=== PATIENT | female | born 1955 | race African-American/Black ===

== ENCOUNTER 2024-03-22 10:10 | Outpatient (REF) | payer MEDICARE, OTHER, SELFPAY ==
--- NOTE | ~2024-03-22 | XR_ITS ---
EXAMINATION: XR CERVICAL SPINE 6 VIEWS CLINICAL INFORMATION: Cervical radiculopathy. Tingling going down the left arm. COMPARISON: None available TECHNIQUE: 6 views of the cervical spine, inclusive of flexion and extension views, were obtained. FINDINGS: There is reversal of the normal cervical lordosis. Alignment is otherwise unremarkable. Normal C1/2 articulation. Lumbar vertebral body heights are maintained. There is mild narrowing of the C5/6 disc space height with moderate narrowing of the C6/7 disc space height. Moderate-sized osteophytes are noted within the mid to lower cervical spine. There is mild narrowing of the left C5/6 neural foramina. Other bilateral neural foramina are widely patent diffusely. No prevertebral soft tissue swelling. Visualized lung apices are well aerated. XR/XR cervical spine 4V IMPRESSION: Mild to moderate degenerative changes of the mid to lower cervical spine. No compression deformity. Electronically signed by: Matthew Leung MD 05/18/2024 09:31 AM SAM
== END 2024-03-22 10:11 | disposition home or self-care (01) ==
LOC: HO.XRAY 10:10
PROVIDERS: PCP Internal Medicine; Visit Provider Psychiatry & Neurology Neurology
DX: M54.12 Radiculopathy, cervical region (principal)
CPT/HCPCS: 72050

== ENCOUNTER 2024-12-19 09:31 | Outpatient (AMB) | payer MEDICARE, OTHER, SELFPAY ==
--- OUTSIDE RECORDS SUMMARY | 2024-03-14 08:00 | XMS_ITS | Encounter Summary ---
Author Organization [facility] Address [address] [place] [address] Care Team Providers Care Invisible Braces Orthodontist Name Role Phone Jean Girard MD Primary Care Provider [phone] Encounter Details Date Type Department Care Team (Late Contact Info) Description 03/14/2024 8:00 AM EDT Hospital Encounter TH HISTORIC ENCOUNTERS EASTERN CONVERSION ONLY Jean Girard MD [address] [place] [address] Social History Tobacco Use Types Packs/Day Years Used Date Smoking Tobacco: Never Smokeless Tobacco: Never Alcohol Use Standard Drinks/Week Comments Not Currently 0 (1 standard drink = 0.6 oz pur e alcohol) Comments No Sex and Gender Information Value Date Recorded Sex Assigned at Female 05/29/2024 11:37 AM EST Legal Sex Female 10:17 AM EST Gender Identity Female 05/29/2024 11:37 AM EST Sexual Orientation Not on file documented as of this encounter Plan of Treatment Upcoming Encounters Date Type Department Care Team (Late st Contact Info) Description 12/25/2024 1:00 PM EDT Appointment [facility] [address] 2nd [place] [id number] 12/28/2024 1:20 PM EDT Appointment Radiology Department - [address] [place] [address] 01/16/2025 8:30 AM EDT Office Visit Pulmonolgy - [place] [address] [place] [address] Nyla Hernandez MD [address] [address] 08/30/2025 2:00 PM EDT Appointment Bone Density - [address] [place] [address] documented as of this encounter Visit Diagnoses Not on filedocumented in this encounter Care Teams Invisible Braces Orthodontist Relationship Specialty Start Date End Date Jean Girard MD [address] [place] [address] PCP - General Internal Medicine 04/13/16 documented as of this encounter
--- NOTE | 2024-12-19 10:00 | A.OFFVIS_ITS ---
Intake Visit Reasons: cr Allergies erythromycin base Allergy (Unknown, Verified 12/15/24 12:30) Unknown Medication List - Last Reconciled 12/19/24 by Trinity Hunter MD amlodipine 10 mg PO QAM fluticasone propion-salmeterol 250-50 mcg/dose (Wixela Inhub) 1 ea inhalation BID fluticasone propion-salmeterol 500-50 mcg/dose (Wixela Inhub) 1 ea inhalation BID ipratropium bromide 2 sprays intranasal BID losartan 25 mg PO DAILY lovastatin 40 mg PO BEDTIME meclizine mg PO ondansetron 4 mg PO Q8H HPI Comments Details: No other episodes of vertigo. She was getting BPV. Work up was negative. Hand Sx have improved. Using braces most nights. Left arm pain an dtingling resolved. Every couple of months she gets some tingling transiently in her right hand as well but not recently. Had a shooting left temporal pain 4 weeks ago for 2 secs. [facility] Medical History (Updated 12/19/24 @ 10:03 by Trinity Hunter MD) Depression Carpal tunnel syndrome, bilateral upper limbs Carpal tunnel syndrome Paresthesia Bronchial asthma Hyperlipidemia Hypertension Review of Systems Const Details: leep:? Difficulty getting to sleep?denies.? Difficulty maintaining sleep?denies? .? Urge to move legs?denies.? Teeth grinding?admits.? Shouting or Kicking during sleep?denies.? Abnormal behavior during sleep?denies.? Excessive sleep?denies.? Snoring?denies.? Daytime sleepiness?denies.? ?? General/Constitutional:? Change in appetite?denies.? Chills?denies.? Fatigue?denies.? Fever?denies .? Weight gain?denies.? Weight loss?denies.? ?? Ophthalmologic:? Blurred vision?denies.? Diminished visual acuity?denies.? ?? ENT:? Stuffiness?denies.? Decreased hearing?denies.? Dry mouth?denies.? Ear pain?denies.? Nosebleed?denies.? Ringing in the ears?denies.? Sinus pain?denies .? Sore throat?denies.? Swollen glands?denies.? ?? Endocrine:? Cold intolerance?denies.? Excessive thirst?denies.? Frequent urination? denies.? Heat intolerance?denies.? ?? Respiratory:? Shortness of breath?denies.? Chest pain?denies.? Cough?denies.? ?? Breast:? Breast lump?denies.? Nipple discharge?denies.? ?? Cardiovascular:? Chest pain at rest?denies.? Chest pain with exertion?denies.? Claudication?denies.? Dizziness?denies.? Fluid accumulation in the legs?denies.? Irregular heartbeat?denies.? Palpitations?denies.? ?? Gastrointestinal:? Abdominal pain?denies.? Constipation?denies.? Diarrhea?denies.? Difficulty swallowing?denies.? Heartburn?denies.? Nausea?denies.? Rectal bleeding?denies.? ?? Hematology:? Easy bruising?denies.? Prolonged bleeding?denies.? ?? Genitourinary:? Frequent urination?denies.? Urgency?denies.? Incontinence?denies.? Ere ctile Dysfunction?denies.? ?? Musculoskeletal:? Neck pain?denies.? Back pain?denies.? Muscle aches?denies.? Painful joints?denies.? Sciatica?denies.? Weakness?denies.? ?? Podiatric:? Difficulty walking?denies.? Foot numbness?denies.? ?? Neurologic:? Difficulty swallowing?denies.? Balance difficulty?denies.? Coordination? normal.? Difficulty speaking?denies.? Dizziness?denies.? Fainting?denies.? Gait abnormality?denies.? Headache?denies.? Loss of strength?denies.? Loss of use of extremity?denies.? Low back pain?denies.? Memory loss?denies.? Seizures?denies.? Tics?denies.? Tingling/Numbness?Hands and feet on the right.? Transient loss of vision?denies.? Tremor?denies.? ?? Psychiatric:? Anxiety?denies.? Auditory/visual hallucinations?denies.? Delusions?denies .? Depressed mood?denies.? Stressors?denies.? Substance abuse?denies.? Suicidal thoughts?denies.? ?? Physical Exam Neuro Other: Neurological: ? Abnormal neurological findings:??none.? Mental Status:?alert and oriented X 3,?Normal attention, orientation, memory and affect.? Cranial Nerves:?Pupils are equal, round and reactive to light. Fundoscopy shows normal disc bilaterally. External occular muscles are intact. Visual yung are full, no ptosis. Face is symmetrical, no facial weakness or droop. Facial sensations are normal. Tongue protrudes in midline. Palate elevates symmetrically. Shoulder shrugging is normal..? Motor Examination:?Normal muscle tone, bulk and strength,?No atrophy or fasciculations,?No drift of the extended upper extremities,?Deep tendon reflexes are 2+?,?Plantars are flexor?.? Straight Leg Raising:?90 degrees.? Sensory Exam:?Normal light touch, temperature, pinprick, vibration and joint-position sensations?,?Rhomberg sign is absent.? Coordination:?no ataxia,?no titubation,?sfpwir-pr-zazn, vzvv-llzz-bscy test and rapid alternating movements were normal.? Gait Exam:?Within normal limits.? Cerebellar Signs:?Yqaauw-oh-tqwa and zsjw-mz-jglt is normal,?no dysdiadochokinesia?.? Extrapyramidal System:?No tremor, rigidity with normal facial expressions,?No bradykinesia, no bradyphrenia. Normal arm swing and posture. No propulsion or retropulsion.? Speech:?Normal,?no dysphasia or dysarthria..? Mini Mental Status Exam: ? Level of Consciousness:?Alert.? Orientation:?Knows correct year, month, date, day and season,?Knows correct city, county and state. Knows correct location and floor.? Registration:?Able to register 3 objects.? Attention:?Serial 7's performed accurately.? Recall:?Able to recall 3 out of 3 objects.? Language:?Normal spontaneous speech, fluency, repetition,naming, comprehension, reading and writing.? Total Score:?30/30.? General Examination: ? GENERAL APPEARANCE:?normal,?in no acute distress.? HEAD:?normocephalic,?atraumatic.? EYES:?sclera non-icteric,?conjunctiva clear.? EARS:?auditory canal clear,?tympanic membrane intact, clear.? NOSE:?no lesions.? ORAL CAVITY:?gums normal,?mucosa moist,?no lesions.? THROAT:?clear.? NECK/THYROID:?no cervical lymphadenopathy,?thyroid normal,?neck supple, full range of motion,?no carotid bruit.? SKIN:?no rashes,?no significant birthmarks.? HEART:?S1, S2 normal,?no murmurs.? LUNGS:?clear anteriorly and posteriorly.? CHEST:?no gross rib deformity,?clear to auscultation.? BACK:?normal exam of spine.? EXTREMITIES:?no edema.? PERIPHERAL PULSES:?normal.? PSYCH:?alert, oriented,?cognitive function intact,?cooperative with exam.? Assessment & Plan Assessment & Plan (1) Vertigo: Code(s): R42 - Dizziness and giddiness Category: Medical (2) Carpal tunnel syndrome, bilateral upper limbs: Code(s): G56.03 - Carpal tunnel syndrome, bilateral upper limbs Category: Medical Plan continue current meds, Use wrist splints at night Coding Level of Care Code Est Pt Level 3 (34280) Diagnoses Vertigo R42 Carpal tunnel syndrome, bilateral upper limbs G56.03
--- OUTSIDE RECORDS SUMMARY | 2024-12-19 10:07 | XMS_ITS | Clinical Summary ---
Author Organization [facility] Address [address] [place] [address] Care Team Providers Care Tray Packer Name Role Phone Jean Girard MD Primary Care Provider [phone] Allergies Active Allergy Reactions Criticality Noted Date Comments Erythromycin Nausea Only 01/29/2022 Medications Medication Sig Dispensed Refills Start Date End Date Status amLODIPine (NORVASC) tablet 2.5 mg Take 2.5 mg by mouth daily. 0 01/18/2022 Active Advair HFA 230-21 MCG/ACT inhaler 0 01/29/2022 Active hydroCHLOROthiazide (HYDRODIURIL) tablet 25 mg Take 25 mg by mouth daily. 0 01/18/2022 Active ipratropium (ATROVENT) 0.06 % nasal spray 2 sprays 2 (two) times a day. 0 01/23/2022 Active lovastatin (MEVACOR) 40 MG tablet Take 40 mg by mouth every night at bedtime. 0 01/05/2022 Active meclizine (ANTIVERT) 25 MG tablet CHEW 1 TABLET BY MOUTH EVERY 6 HOURS NEEDED FOR DIZZINESS AND NAUSEA 0 01/12/2022 Active montelukast (SINGULAIR) 10 MG tablet Take 10 mg by mouth every night at bedtime. 0 01/09/2022 Active ondansetron (ZOFRAN) 4 MG tablet 0 01/28/2022 Active Spiriva Respimat 1.25 MCG/ACT AERS 0 01/29/2022 Active Active Problems Problem Noted Date Diagnosed Date Osteopenia 01/21/2022 Social History Tobacco Use Types Packs/Day Years Used Date Smoking Tobacco: Never Assessed Sex and Gender Information Value Date Recorded Sex Assigned at Female 01/19/2022 3:53 PM EDT Gender Identity Not on file Sexual Orientation Not on file Job Start Date Occupation Industry Not on file Not on file Not on file Last Filed Vital Signs Vital Sign Reading Time Taken Comments Blood Pressure 132/94 01/29/2022 2:00 PM EDT Pulse 90 01/29/2022 2:00 PM EDT Temperature 36.1 C (96.9 F) 01/29/2022 2:00 PM EDT Respiratory Rate 18 01/29/2022 2:00 PM EDT Oxygen Saturation 100% 01/29/2022 2:00 PM EDT Inhaled Oxygen Concentration - - Weight - - Height - - Body Mass Index - - Plan of Treatment Health Maintenance Due Date Last Done Comments Hepatitis C Screening 1955 COVID-19 Vaccine (#1) 1953 Depression Screening 1965 Preventative Health Evaluation 1971 DTap / Tdap / Td (1 - Tdap) 1972 Colon Cancer Screening (Colonoscopy) 1998 Breast Cancer Screening (Mammogram) 2003 Shingrix-Zoster Vaccine (1 of 2) 2003 Fall Risk Assessment 2018 Osteoporosis Screening (DEXA Scan) 2018 Pneumococcal Vaccine (1 of 1 - PCV) 2018 Influenza Vaccine (#1) 2025 RSV Adult > 60+ Yrs or Pregn ant (1 - 1-dose 75+ series) 2028 Hepatitis B Vaccines Aged Out No long er eligible based on patient's age to complete this topic RSV Ped < 20 months Aged Out No longe r eligible based on patient's age to complete this topic Care Teams Tray Packer Relationship Specialty Start Date End Date Jean Girard MD [address] [place] [address] PCP - General Internal Medicine 01/21/22
--- OUTSIDE RECORDS SUMMARY | 2024-12-19 10:07 | XMS_ITS | Data Portability ---
Author Organization [place] - [facility] [address] Address [address] [place] [address] Assessment No assessment recorded. Plan of Treatment Reminders Order Date Submit Date Provider Last Modified By Organization Details Last Modified Time Details Appointments None recorded. Lab SARS CoV 2 (COVID-19) Ag, QL, IA, upper respiratory specimen [email or web address] [facility] [facility] [address], [address] [place], [address], 4 11:40:37 Referral None recorded. Procedures None recorded. Surgeries None recorded. Imaging None recorded. Medication Orders Allergy Relief (fluticason e) 50 mcg/actuati on nasal spray,suspe nsion 2023 024 [id number], [address] [place], [address], 4 11:40:37 Patient TargetsNo targets recorded. Patient Instructions Encounter Date Encounter Id Patient Instructions Last Modified By Organization Details Last Modified Time 06/21/2023 [id number] If you test positive for COVID-19, stay home for at least 5 days and isolate from others in your home. You are likely most infectious during these first 5 days. Wear a high-quality mask if you must be around others at home and in public. Do not go places where you are unable to wear a mask. For travel guidance, see CDC s Travel webpage. Do not travel. Stay home and separate from others as much as possible. Use a separate bathroom, if possible. Take steps to improve ventilation at home, if possible. Don t share personal household items, like cups, towels, and utensils. Monitor your symptoms. If you have an emergency warning sign (like trouble breathing), seek emergency medical care immediately. If you had symptoms and: Your symptoms are improving You may end isolation after day 5 if: You are fever-free for 24 hours (without the use of fever-reducing medication). Your symptoms are not improving Continue to isolate until: You are fever-free for 24 hours (without the use of fever-reducing medication). Your symptoms are improving. Regardless of when you end isolation Until at least day 11: Avoid being around people who are more likely to get very sick from COVID-19. Remember to wear a high-quality mask when indoors around others at home and in public. Do not go places where you are unable to wear a mask until you are able to discontinue masking (see below). For travel guidance, see [facility] s Travel webpage. [email or web address] Not available 06/21/2023 11:40:34 Reason for Referral None Reported. Results Created Date Observation Date Name Description Value Unit Range Abnormal Flag Note LastModifiedBy Organization Detail LastModifiedTime 06/21/19 24 06/21/2023 SARS CoV 2 (COVI D-19) Ag, QL, IA, upper respi rator y speci men Unknown Analyte negati ve Not Available [facility] [address] [place], [address], 06/21/2023 11:22:44 06/21/1906/21/2023 SARS CoV 2 (COVI D-19) Ag, QL, IA, upper respi rator y speci men Unknown Analyte yes Not Available [address] [place], [address], 06/21/2023 11:22:44 Result Notes None recorded. Problems Name Problem SNOMED Code Status Onset Date Resolution Date Notes Provider Name and Address Organization Details Recorded Time Hypertensive disorder 95473988 Active [facility] 11:17:29 Hyperlipidemia 28392151 Active [facility] 4 11:17:35 Osteopenia 494986676 Active KUSH hess [place] - [facility] 4 11:17:58 Vertigo 341920547 Active KUSH hess, [place] - [facility] 4 11:18:12 Problem Notes None recorded. Procedures Surgical History Date Name Laterality Status Provider Name and Address Organization Details Recorded Time Removal of tonsils completed KUSH CASTILLO [place] - [facility] 06/21/2023 11:18:39 hysterectomy completed KUSH CASTILLO [place] - [facility] 06/21/2023 11:18:48 Imaging Results None recorded. Procedure Notes None recorded. Medical Equipment None Reported. Allergies Allergen ID Allergen Name Allergen Category Reaction Reaction Severity Criticality Documentation Date Start Date Code Code System Note Provider Name and Address Organization Details Recorded Time 487563 erythromy destiny medicatio n Not available Not available Not available 06/21/2023 4053 RxNorm KUSH hess, [place] - [facility] 4 11:16:11 Medications Name Sig Start Date Stop Date Status Note LastModified by Organization Details LastModified Time fluticasone propionate 50 mcg/actuatio n nasal spray,suspen jarred SPRAY 1 SPRAY EVERY DAY BY INTRANASAL ROUTE DIRECTED FOR 90 DAYS. active Not Available Not Available No t Available aspirin active Not Available Not Avail able Not Available meclizine active Not Available Not Nela ilable Not Available hydrochlorot hiazide active Not Available Not Available Not Available amlodipine active Not Available Not Av ailable Not Available montelukast active Not Available Not A vailable Not Available lovastatin active Not Available Not Av ailable Not Available Vitals Date Recorded Body height Body mass index (BMI) Body weight Respiratory rate Body temperature Systolic And Diastolic Provider Name and Address Organization Details Last Updated DateTime 4 167.64 cm 33.1 kg/m2 35537.4 4 g 18 /min 98.2 [degF] 143/90 mm[Hg] KUSH CASTILLO [place] - [facility] 4 11:20:32 Social History None recorded. Functional Status Question Answer Note LastModified by Organizat ion Details LastModified Time Do you use any illicit or recreational drugs? No Information not available 06/21/2023 Do you or have you ever used any other forms of tobacco or nicotine? No Information not available 06/21/2023 What is your level of alcohol consumption? Occasional Information not available 06/21/2023 Mental Status None recorded. Family History Nothing Reported. Medical History No medical history recorded. Gynecological HistoryNo gynecological history recorded. Obstetrics History GPAL:G 0 P 0 0 0 0 Past Encounters Encounter ID Performer Location Encounter Start Date Encounter Closed Date Diagnosis/Indication Diagnosis SNOMED-CT Code Diagnosis ICD10 Code Diagnosis Note [id number] [place] [address] 04/04/2022 12:29:28 04/04/2022 14:38:09 [id number] [address] [place] [address] 01/12/2022 15:49:38 01/12/2022 17:54:04 [id number] Jose Antonio Valdovinos, CANDY SPREADER [address] [place] [address] 06/21/2023 10:33:18 06/21/2023 11:45:10 Exposure to SARS-CoV-2 395058972 Z20.822 Acute sinusitis 01364799 J01.90 Sinusitis is an infection of the lining of the sinus cavities in your head. Sinusitis often follows a cold. It causes pain and pressure in your head and face. In most cases, sinusitis gets better on its own in 1 to 2 weeks. But some mild symptoms may last for several weeks. Sometimes antibiotic s are needed. if you are having problems. It's also a good idea to know your test results and keep a list of the medicines you take. How can you care for yourself at home? Take an over-the-c ounter pain medicine. Avoid Ibuprofen, Aleve and Aspirin if . If the doctor prescribed antibiotic s, take them as directed. Do not stop taking them just because you feel better. You need to take the full course of antibiotic s. Be careful when taking over-the-c ounter cold or influenza (flu) medicines and Tylenol at the same time. Many of these medicines have acetaminop hen, which is Tylenol. Read the labels to make sure that you are not taking more than the recommende d dose. Too much acetaminop hen (Tylenol) can be harmful. Breathe warm, moist air from a steamy shower, a hot bath, or a sink filled with hot water. Avoid cold, dry air. Using a humidifier in your home may help. Follow the directions for cleaning the machine. Use saline (saltwater ) nasal washes. This can help keep your nasal passages open and wash out mucus and bacteria. You can buy saline nose drops at a grocery store or drugstore. Or you can make your own at home by adding 1 teaspoon (5 millilitre s) of salt and 1 teaspoon (5 millilitre s) of baking soda to 2 cups (500 mL) of distilled water. If you make your own, fill a bulb syringe with the solution, insert the tip into your nostril, and squeeze gently. Blow your nose. Put a hot, wet towel or a warm gel pack on your face 3 or 4 times a day for 5 to 10 minutes each time. Try a decongesta nt nasal spray like oxymetazol ine (Drixoral) . Do not use it for more than 3 days in a row. Using it for more than 3 days can make your congestion worse. Health Concerns Section Related Observation LastModified by Organization Detai ls LastModified Time None Recorded Concern Status LastModified by Organization Details LastModified Time None Recorded Advance Directives Directive None Recorded Payers Insurance Date Sequence Insurance Name Policy Number Policy Johnston Covered Member ID Johnston Member ID Guarantor Name 06/21/2023 1 [place]: [employer] Genaro Jeffersongar [id number] [facility] 06/21/2023 2 [facility] [id number] Genaro Jeffersongar [id number] [facility] Notes Date Note Type Note Provider Name and Address Organization Details Recorded Time 4 text/html CoughReported bypatient.source of patient informationInformation obtained from patient; Patient arrived at Urgent Care ambulatory; learning styles: auditory Quality:harsh;dry; intermittent; symptoms worse with lying down Severity:worsening;pain with cough; moderate Duration:constant; symptoms lasting over 2 weeks Timing:worsening; gradual Context:Patient denies vaping; non-smoker Modifying Factors:at night Associated Symptoms:no fever; no chills; no chest pain; no heartburn; no nausea; no vomiting; no edema; no agitation; no wheezing;post nasal drip Jose Antonioskye Valdovinos NP [address] [place], [address], [place] - [facility] 06/21/2023 11:56:52 OBGyn Episode No OBEpisode recorded.
--- OUTSIDE RECORDS SUMMARY | 2024-12-19 10:07 | XMS_ITS | Clinical Summary ---
Author Organization [facility]. 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 Name Role Phone LucitaJean canchola Primary Care Provider [phone] Allergies Active Allergy Reactions Criticality Noted Date Comments Erythromycin Nausea Medium 07/12/2012 Stomach ache on empty stomach Medications albuterol HFA (PROVENTIL HFA;VENTOLIN HFA) 108 (90 Base) MCG/ACT inhaler Inhale 2 puffs 06/23/2022 Active Aspirin Low Dose 81 MG EC tablet Take 81 mg by mouth 1 (one) time each day 12/21/2022 Active cetirizine (ZyrTEC) 10 MG tablet Take 1 tablet by mouth 1 (one) time each day 12/21/2022 Active fluticasone-christopher meterol (Advair HFA) 230-21 MCG/ACT inhaler Inhale 2 puffs 01/29/2022 Active lovastatin (MEVACOR) 40 MG tablet Take 40 mg by mouth 1 (one) time each day in the evening 10/09/2022 Active meclizine (ANTIVERT) 25 MG tablet Take 25 mg by mouth 01/12/2022 Active montelukast (SINGULAIR) 10 MG tablet Take 10 mg by mouth 1 (one) time each day in the evening 11/06/2022 Active ondansetron (ZOFRAN) 4 MG tablet Take 4 mg by mouth 01/28/2022 Active amLODIPine (NORVASC) 5 MG tablet TAKE 1 & 1/2 TABLET BY MOUTH DAILY 135 tablet 1 06/21/2023 Active pantoprazole (PROTONIX) 20 MG EC tablet Take 20 mg by mouth 08/23/2023 Active losartan (COZAAR) 25 MG tablet Take 25 mg by mouth in the morning. 07/24/2024 Active Fluticasone-Christopher meterol (Wixela Inhub) 500-50 MCG/ACT aerosol powder Inhale 1 puff in the morning and 1 puff in the evening. Active Active Problems Problem Noted Date Diagnosed Date Hypertensive disorder 07/11/2012 01/06/2023 Overview (01/06/2023): 05/18-carotid dopplers nad Resolved Problems Problem Noted Date Diagnosed Date Resolved Date Gastro-esophageal reflux dis ease with esophagitis 07/27/2022 01/06/2023 01/06/2023 Osteopenia 01/21/2022 01/06/2023 01/06/2023 Bilateral stenosis of carotid arteries 02/19/202001/06/2023 Prediabetes 05/16/2019 01/06/2023 01/06/2023 Adenomatous polyp of colon 04/07/2018 01/06/2023 0 01/06/2023 Cardiac murmur 12/09/2017 01/06/2023 01/06/2023 Overview (01/06/2023): Stress echo (06/22/18): Normal resting echocardiogram, resting O2 saturation 89%, climbed with 92% with exercise. Exercise stopped secondary to dyspnea, no chest pain. Resting echocardiogram with preserved left ventricle size and systolic function no gross valvular abnormalities. Post exercise echocardiography with no evidence of exercise-induced ischemia. Cardiology (11/29/17): Echo ordered for aortic o seen by Dr. Tapia. Echo (12/07/17): Normal left ventricular systolic function, ejection fraction 55- 60%. Normal right ventricular size and function. Trace aortic insufficiency, mitral regurgitation. Thickened mitral valve leaflets Chronic venous insufficiency 04/11/2017 01/06/2023 01/06/2023 Overview (01/06/2023): (07/09/17): successful right EVLT. No evidence of intraluminal thrombus with the exception of the greater saphenous vein. Vascular (05/07/17): recommended right lower extremity EVLT and microphlebectomy and patient would like to proceed. Vascular (02/09/17): Right lower x-ray swelling, chronic venous insufficiency, US duplex ultrasound ordered. LE venous duplex(04/06/17): no evidence of thrombus in right LE. 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 07/14/2016 01/06/2023 01/06/2023 Adjustment disorder with mix ed emotional features 08/22/2015 01/06/2023 01/06/2023 Family history of malignant neoplasm of breast 07/12/2012 01/06/2023 01/06/2023 Overview (01/06/2023): Negative testing for BRCA1 & 2 Asthma 07/11/2012 01/06/2023 01/06/2023 Overview (01/06/2023): AIANE On half-way steroids; DXA 10/2014 osteopenia Hyperlipidemia 07/11/2012 01/06/2023 01/06/2023 Overview (01/06/2023): Simvastatin gave cough Encounters Date Type Department Care Team Description 10/02/2024 1:30 PM EDT Office Visit [facility] [address] [phone] Jose Francisco Coleman MD Hypertension (Primary Dx) from Last 3 Months Immunizations Immunization Administration Dates Next Due Influenza Split High Dose Pr eservative Free IM 03/19/2022,02/19/2020 Influenza, MDCK, PF, Quadrivalent 05/16/2019,06/2017 Influenza, MDCK, Quadrivalen t, with preservative 02/24/2017 Influenza, Unspecified 04/27/2016,2014,01/31/2014,02/22 Moderna SARS-COV-2 05/08/2021,09/06/2020, 021 Pneumococcal Conjugate 13-Valent 08/30/2018 Pneumococcal Polysaccharide 02/19/2020, 4 Shingrix 04/20/2021,01/29/2021 Td 12/21/2022 Tdap 11/30/2012 Zoster 07/28/2013 Family History Medical History Relation Comments Cancer Father Diabetes Mother Relation Status Comments Father Mother Social History Tobacco Use Types Packs/Day Years Used Date Smoking Tobacco: Never Passive Smoke Exposure: Never Smokeless Tobacco: Never Tobacco Cessation:Counseling Given: No Alcohol Use Standard Drinks/Week Comments Yes 0 (1 standard drink = 0.6 oz pur e alcohol) 2-3 a year Comments Unknown Sex and Gender Information Value Date Recorded Sex Assigned at Not on file Legal Sex Female 1:58 PM EDT Gender Identity Not on file Sexual Orientation Not on file Last Filed Vital Signs Vital Sign Reading Time Taken Comments Blood Pressure 120/75 10/02/2024 1:39 PM EDT Pulse 85 10/02/2024 1:39 PM EDT Temperature - - Respiratory Rate - - Oxygen Saturation 99% 02/19/2023 10:44 AM EDT Inhaled Oxygen Concentration - - Weight 94.3 kg (208 lb) 10/04/2023 2:07 PM EDT Height - - Body Mass Index - - Plan of Treatment Upcoming Encounters Date Type Department Care Team (Late st Contact Info) Description 10/01/2025 1:45 PM EDT Office Visit [facility] [address] [phone] Jose Francisco Coleman MD [address] [phone] Health Maintenance Due Date Last Done Comments Breast Cancer Screening 1955 Colorectal Cancer Screening: Annual FOBT 2002 Colorectal Cancer Screening: Colonoscopy 2002 Colorectal Cancer Screening: Sigmoidoscopy 2002 Diabetes: Hemoglobin A1C 09/04/2024 04/28/2024, 12/05 Diabetes: Ophthalmology Exam 09/04/2024 Diabetes: Pedal Pulse Checked 09/04/2024 Diabetes: Sensory Foot Exam 09/04/2024 Diabetes: Visual Foot Exam 09/04/2024 Influenza Vaccine (#1) 2025 , 03/28/2023, 03/19/2022, Additional history exists Pneumococcal Vaccine: 50+ Years Completed 02/19/2020, 08/30/2018, 07/19/2013 Hepatitis B Vaccine Aged Out No longe r eligible based on patient's age to complete this topic Insurance Medicare Care Teams 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
== END 2024-12-19 10:11 | disposition home or self-care (01) ==
LOC: HO.HSM 09:32
PROVIDERS: PCP Internal Medicine; Referring Provider Internal Medicine; Visit Provider Psychiatry & Neurology Neurology
DX: R42 Dizziness and giddiness (principal); G56.03 Carpal tunnel syndrome, bilateral upper limbs
CPT/HCPCS: 99213

== ENCOUNTER → 2024-12-19 09:31 | Outpatient (BNVA) | payer MEDICARE, OTHER, SELFPAY | PROVIDERS: PCP Internal Medicine; Referring Provider Internal Medicine; Visit Provider Psychiatry & Neurology Neurology | DX: R42 Dizziness and giddiness (principal); G56.03 Carpal tunnel syndrome, bilateral upper limbs | CPT/HCPCS: 99212 ==